=== PATIENT | male | born 1960 | race Caucasian/White ===

== ENCOUNTER → 2020-10-27 12:25 | Outpatient (CLI) | payer OTHER, MEDICAID, SELFPAY ==
--- NOTE | 2020-10-27 12:27 | DI.MRI.S_ITS ---
PROCEDURE: MR THORACIC SPINE WO CON INDICATIONS: Evaluate progressive acture pain TECHNIQUE: Noncontrast sagittal T1 spine echo and T2 fast spin echo, sagittal STIR, axial T1 and T2 fast spin echo through the thoracic spine. COMPARISON: None. FINDINGS: Image quality: Excellent. Alignment and Curvature: Normal thoracic vertebral body height and alignment. There is no compression fracture identified Bone Marrow: Normal thoracic bone marrow signal intensity. Incidentally noted 8 mm hemangioma in the T4 vertebral body, of no clinical significance. No suspicious focal marrow signal abnormality or bone marrow edema. Spinal Cord: Normal morphology and signal intensity of the thoracic cord. There is no syrinx. Normal position and appearance of the conus. Regional Soft Tissues: No prevertebral or paraspinous soft tissue mass. The included unenhanced retroperitoneal visceral structures demonstrate no acute finding. Miscellaneous: No spinal canal or neural foraminal stenosis at any level in the thoracic spine. IMPRESSION: Essentially unremarkable thoracic spine MRI. No significant degenerative changes, spinal canal stenosis, or neural foraminal stenosis. Dictated by: Michael Prasad M.D. on 10/29/2020 at 8:27 Approved by: Michael Prasad M.D. on 10/29/2020 at 8:30
== END ==
PROVIDERS: PCP Student in an Organized Health Care Education/Training Program; Referring Provider Student in an Organized Health Care Education/Training Program; Visit Provider Student in an Organized Health Care Education/Training Program
DX: M54.6 Pain in thoracic spine (principal)
CPT/HCPCS: 72146

== ENCOUNTER 2020-11-12 13:32 | Outpatient (RCR) | payer OTHER, MEDICAID, SELFPAY ==
--- NOTE | 2020-11-12 14:12 | PT-OP ANOTE ---
Eval placed onto PT's schedule for 1344. Order from Dr. Diaz has ankle, thoracic back and shoulder pain on it. Per front office and patient, pt is having neck surgery in three days. He has [facility], which is 1 eval and 24 units per year. Upon arrival, pt reports old left ankle injury and left first phalange and metatarsal pain with visible joint changes there upon PT observation. Pt reports left shoulder pain that is radicular from his neck. Given PT limitations per insurance, PT and pt decide to defer evaluation until after his neck surgery. PT provides pt business card and writes out notes for pt to give spinal surgeon re: would like to start PT for his foot, balance, thorax and left shoulder a.s.a.p. after surgery and that PT will not provide any cervical or lifting exercises for patient. Can perform PT on these areas per Dr. Diaz's order but will need clearance from surgeon before starting PT. Pt is agreeable to plan. He does state that his mother is having health concerns in [place] and that he might have to travel there to help her post-op. He would like to set-up initial eval with PT once he figures out what will happen with her.
--- NOTE | 2020-11-26 09:04 | PT-OP ANOTE ---
Pt calls and states that before cervical surgery, he was cleared to do PT if he did not lift more than 15 lbs or twist or strain his neck. He has not had a follow-up with his surgeon yet. He had days of vomiting after taking opioids and is now managing with Tylenol and edibles. He has called his surgeon's office about his medication concerns and has not heard back. He has a follow-up on 12/06/20. PT ed pt that will need a note of clearance from surgeon before initiating OPPT.
== END 2020-12-14 08:38 | disposition home or self-care (01) ==
LOC: PHYS 13:32
PROVIDERS: PCP Student in an Organized Health Care Education/Training Program; Referring Provider Student in an Organized Health Care Education/Training Program; Visit Provider Student in an Organized Health Care Education/Training Program
DX: M25.579 Pain in unspecified ankle and joints of unspecified foot (principal); M54.6 Pain in thoracic spine; M25.512 Pain in left shoulder

== ENCOUNTER → 2021-01-02 07:01 | Outpatient (CLI) | payer OTHER, MEDICAID, SELFPAY | PROVIDERS: PCP Student in an Organized Health Care Education/Training Program; Referring Provider Student in an Organized Health Care Education/Training Program; Visit Provider Student in an Organized Health Care Education/Training Program | DX: R97.20 Elevated prostate specific antigen [PSA] (principal) | CPT/HCPCS: 36415; 84153 ==

== ENCOUNTER 2021-03-05 09:45 | Outpatient (RCR) | payer OTHER, MEDICAID, SELFPAY ==
--- NOTE | 2021-02-19 15:46 | PT.OIE ---
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) Past Medical History (Last Updated 09/16/20 @ 18:37 by Vandana Brewer) Fractures History of surgical fusion joint (~2004) Skin cancer (~2003) Past Surgical History (Last Updated 09/16/20 @ 18:37 by Vandana Brewer) Anesthesia History of surgical fusion joint (~2004) Visit Care Team Role Provider Type Ulices Diaz MD Family Provider Physician Primary Care Provider Specialty: Internal Medicine Address: [address] [place] [address], [address], [address] Email: [email or web address] Ana Escoto MD Attending Provider Non-Staff Referring Provider Specialty: Neurosurgery Address: [address] [place] [address], [address], [place], [address] Email: Physical Therapy Initial Evaluation PT-OP-A Visit Information Start: 02/19/21 10:30 Freq: Status: Active Protocol: Document 02/19/21 12:20 MB (Rec: 02/19/21 12:37 MB [id number]) Out-Patient Physical Therapy Visit Information Visit Information Visit Type Initial Evaluation Visit Note [facility], Medicaid Eval only and then 8 visits a year Visit Start Time 12:20 Visit Stop Time 12:55 Total Visit Minutes 35 Visit Number 05/26 Evaluation Information Evaluation Date 02/19/21 PT-OP-B Current Condition Start: 02/19/21 10:30 Freq: Status: Active Protocol: Document 02/19/21 12:20 MB (Rec: 02/19/21 12:37 MB [id number]) Current Condition History of Current Condition Onset Date 11/15/20 Current Complaints Left traps pain up to 8/10 and left ankle pain up to 6/10 History of Current Condition Pt underwent C3-5 fusion . He has a history of C5-7 fusion in 2004. He broke his left heel in 3 places in 1979 and he broke some left toes 5 years ago and his left foot is still bothering him and he has an arthritic left great toe. He reports a lot of left calf weakness as a result of left foot issues. He is leaving for [facility] for 03/14/21. He might be gone for the rest of the year. PT course may be short. He is using Life Waves that is helping with pain. They are patches. He is using Alleve. Pt reports that he is supposed to use his own judgement about activity, not lift heavy weights or do a lot of work overhead. He was told that it would take up to a year for his neck to fuse. Pt reports no numbness or tingling in his UEs. He can sleep up to 5-6 hours on his right side. He does get nauseated if he sleeps on his left side. He only has a little issue with high BP. He has right eye ball headaches that occurs with bright light. He also sneezes with this as well. Prior Treatments and Tests Two cervical fusion Treatment Goals Patient/Caregiver Goals To improve range of motion and to loosen the the muscles around his neck and upper shoulders PT-OP-C Subjective Start: 02/19/21 10:30 Freq: Status: Active Protocol: Document 02/19/21 12:20 MB (Rec: 02/19/21 12:37 MB [id number]) OP-PT Subjective Patient Comments Patient Comments See history of current condition PT-OP-J Posture/Palpation/Skin Start: 02/19/21 10:30 Freq: Status: Active Protocol: Document 02/19/21 12:20 MB (Rec: 02/19/21 15:46 MB [id number]) Posture Evaluation Comments Posture Comments Standing with shoes off: forward head, rounded shoulders, 3.5 inch scar posterior cervical spine along spinous processes occiput to C5 area, right iliac crest higher than the left, convexity right thoracic spine , right shoulder mildly higher than the left. PT-OP-K Range of Motion Start: 02/19/21 10:30 Freq: Status: Active Protocol: Document 02/19/21 12:20 MB (Rec: 02/19/21 15:46 MB [id number]) Cervical Spine Range of Motion Cervical Spine Active Testing Position Standing Flexion 30 Extension 15 Rotation Left 50 Rotation Right 49 Lateral Flexion Left 9 Lateral Flexion Right 6 Shoulder Goniometric Range of Motion Shoulder Left Shoulder ROM WFL Yes Testing Position Standing Flexion 168 Right Shoulder ROM WFL Yes Testing Position Standing Flexion 160 PT-OP-M Strength Start: 02/19/21 10:30 Freq: Status: Active Protocol: Document 02/19/21 12:20 MB (Rec: 02/19/21 15:46 MB [id number]) Shoulder Strength Shoulder Manual Muscle Testing Left Flexion 5 Normal Abduction (C5) 5 Normal External Rotation 5 Normal Internal Rotation 4 Good Right Flexion 5 Normal Abduction (C5) 5 Normal External Rotation 5 Normal Internal Rotation 5 Normal Elbow/Forearm Strength Elbow and Forearm Manual Muscle Testing Left Flexion (C6) 5 Normal Extension (C7) 5 Normal Pronation 5 Normal Supination 5 Normal Right Flexion (C6) 5 Normal Extension (C7) 5 Normal Pronation 5 Normal Supination 5 Normal PT-OP-T Assessment and Plan Start: 02/19/21 10:30 Freq: Status: Active Protocol: Document 02/19/21 12:20 MB (Rec: 02/19/21 14:02 MB [id number]) Physical Therapy Assessment Rehab Potential Rehabilitation Potential Good Evaluation Complexity Number of Personal Factors/Comorbidities 1-2 Number of Body Systems Impaired 1-2 Clinical Presentation at Evaluation Stable Impairments Impairments Edema,Integument,Pain,Posture, ROM,Soft Tissue Mobility, Strength Other Impairments Personal factors include patient is leaving for [facility] for the rest of the year on 03/14/21 and so PT course will be condensed and shorter. Body systems affected include musculoskeletal and neuromuscular. Goals 2 Manager Reporting Goal (LTG) Pt will perform progressive HEP with I including flexibility, strengthening, postural and balance exercises to improve pain, range and function by 03/13/21. LTG Duration 4 weeks 1 Impairment NDI score reflects 34% impairment Custodial Goal (LTG) Pt will present with an improved NDI score to reflect no more than 20% impairment to improve quality of life by . LTG Duration 4 weeks Assessment Summary Assessment Pt is a 61 y/o male presenting post-op cervical fusion. He has a history of another cervical fusion and left heel and toe injuries that affect balance, mobility and pain. He presents with limited cervical ROM and decreased left shoulder strength. He states that his left shoulder was affected by his cervical changes pre-op. PT course will be short as pt is leaving the country 03/14/21. He will benefit from PT for manual work, ther-ex, self-care training, balance, strengthening and flexibility. Physical Therapy Plan Frequency and Duration Frequency of Treatment 2x/Week Duration of Treatment 4 weeks Plan of Care Start Date 02/19/21 Plan of Care End Date 03/13/21 Therapeutic Interventions Therapeutic Interventions Aquatic Therapy,Balance Training,Canalithic Repositioning,Home Exercise Program,Joint Mobilizations, Manual Therapy,Neuromuscular Re-education,Patient/Caregiver Education,Self-Care/Home Management,Soft Tissue Mobilization,Taping, Therapeutic Activities, Therapeutic Exercises Modalities Cold Pack/Ice Massage,Electric Stimulation,Hot Packs, Ultrasound Next Visit Focus/Plan Next Note Type Treatment Note Next Visit Plan Initiate racquet ball and back nobber self-massage, thoracic rotation with coordinated breathing, pt would eventually like pool program, consider tandem balance, calf stretches and racquet ball massage for calf as well as foot issue can cause balance impairment and increase fall risk
--- NOTE | 2021-02-19 15:46 | PT.OPPOC ---
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) Visit Care Team Role Provider Type Ulices Diaz MD Family Provider Physician Primary Care Provider Specialty: Internal Medicine Address: [address] [place] [address], [address], [address] Email: [email or web address] Ana Escoto MD Attending Provider Non-Staff Referring Provider Specialty: Neurosurgery Address: [address] [place] [address], [address], [place], [address] Email: Plan Of Care PT-OP-T Assessment and Plan Start: 02/19/21 10:30 Freq: Status: Active Protocol: Document 02/19/21 12:20 MB (Rec: 02/19/21 14:02 MB [id number]) Physical Therapy Assessment Rehab Potential Rehabilitation Potential Good Evaluation Complexity Number of Personal Factors/Comorbidities 1-2 Number of Body Systems Impaired 1-2 Clinical Presentation at Evaluation Stable Impairments Impairments Edema,Integument,Pain,Posture, ROM,Soft Tissue Mobility, Strength Other Impairments Personal factors include patient is leaving for [facility] for the rest of the year on 03/14/21 and so PT course will be condensed and shorter. Body systems affected include musculoskeletal and neuromuscular. 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 LTG Duration 4 weeks 1 Impairment NDI score reflects 34% impairment Prison Goal (LTG) Pt will present with an improved NDI score to reflect no more than 20% impairment to improve quality of life by . LTG Duration 4 weeks Assessment Summary Assessment Pt is a 61 y/o male presenting post-op cervical fusion. He has a history of another cervical fusion and left heel and toe injuries that affect balance, mobility and pain. He presents with limited cervical ROM and decreased left shoulder strength. He states that his left shoulder was affected by his cervical changes pre-op. PT course will be short as pt is leaving the country 03/14/21. He will benefit from PT for manual work, ther-ex, self-care training, balance, strengthening and flexibility. Physical Therapy Plan Frequency and Duration Frequency of Treatment 2x/Week Duration of Treatment 4 weeks Plan of Care Start Date 02/19/21 Plan of Care End Date 03/13/21 Therapeutic Interventions Therapeutic Interventions Aquatic Therapy,Balance Training,Canalithic Repositioning,Home Exercise Program,Joint Mobilizations, Manual Therapy,Neuromuscular Re-education,Patient/Caregiver Education,Self-Care/Home Management,Soft Tissue Mobilization,Taping, Therapeutic Activities, Therapeutic Exercises Modalities Cold Pack/Ice Massage,Electric Stimulation,Hot Packs, Ultrasound Next Visit Focus/Plan Next Note Type Treatment Note Next Visit Plan Initiate racquet ball and back nobber self-massage, thoracic rotation with coordinated breathing, pt would eventually like pool program, consider tandem balance, calf stretches and racquet ball massage for calf as well as foot issue can cause balance impairment and increase fall risk Plan of Care Dates Plan of Care Start Date 02/19/21 Plan of Care End Date 03/13/21 Electronically Signed by: Jackie Mar PT 02/19/21 4615 Please Sign and Return: I have reviewed this Plan of Care and certify that the skilled therapy services above are required to meet the patient?s needs. Physician Signature Date Printed Name and Credentials Clinical Instructor Signature Printed Name and Credentials
--- NOTE | 2021-02-20 10:31 | PT.OTN ---
Current Diagnoses Arthrodesis status (02/20/21) Physical Therapy Treatment Note PT-OP-A Visit Information Start: 02/19/21 10:30 Freq: Status: Active Protocol: Document 02/20/21 09:47 MB (Rec: 02/20/21 10:26 MB [id number]) Out-Patient Physical Therapy Visit Information Visit Information Visit Type Treatment Note Visit Note [facility], Medicaid Eval only and then 8 visits a year Visit Start Time 09:47 Visit Stop Time 10:27 Total Visit Minutes 40 Visit Number 06/26 Evaluation Information Evaluation Date 02/19/21 PT-OP-B Current Condition Start: 02/19/21 10:30 Freq: Status: Active Protocol: Document 02/19/21 12:20 MB (Rec: 02/19/21 12:37 MB [id number]) Current Condition History of Current Condition Onset Date 11/15/20 Current Complaints Left traps pain up to 8/10 and left ankle pain up to 6/10 History of Current Condition Pt underwent C3-5 fusion . He has a history of C5-7 fusion in 2004. He broke his left heel in 3 places in 1979 and he broke some left toes 5 years ago and his left foot is still bothering him and he has an arthritic left great toe. He reports a lot of left calf weakness as a result of left foot issues. He is leaving for [facility] for 03/14/21. He might be gone for the rest of the year. PT course may be short. He is using Life [employer]x [place] that is helping with pain. They are patches. He is using Alleve. Pt reports that he is supposed to use his own judgement about activity, not lift heavy weights or do a lot of work overhead. He was told that it would take up to a year for his neck to fuse. Pt reports no numbness or tingling in his UEs. He can sleep up to 5-6 hours on his right side. He does get nauseated if he sleeps on his left side. He only has a little issue with high BP. He has right eye ball headaches that occurs with bright light. He also sneezes with this as well. Prior Treatments and Tests Two cervical fusion Treatment Goals Patient/Caregiver Goals To improve range of motion and to loosen the the muscles around his neck and upper shoulders PT-OP-C Subjective Start: 10/05/21 10:30 Freq: Status: Active Protocol: Document 02/20/21 09:47 MB (Rec: 02/20/21 10:26 MB [id number]) OP-PT Subjective Patient Comments Patient Comments Pt tried towel roll under pillow and that was helpful. The pillows between his arms was not. PT-OP-J Posture/Palpation/Skin Start: 02/19/21 10:30 Freq: Status: Active Protocol: Document 02/19/21 12:20 MB (Rec: 02/19/21 15:46 MB [id number]) Posture Evaluation Comments Posture Comments Standing with shoes off: forward head, rounded shoulders, 3.5 inch scar posterior cervical spine along spinous processes occiput to C5 area, right iliac crest higher than the left, convexity right thoracic spine , right shoulder mildly higher than the left. PT-OP-K Range of Motion Start: 02/19/21 10:30 Freq: Status: Active Protocol: Document 02/19/21 12:20 MB (Rec: 02/19/21 15:46 MB [id number]) Cervical Spine Range of Motion Cervical Spine Active Testing Position Standing Flexion 30 Extension 15 Rotation Left 50 Rotation Right 49 Lateral Flexion Left 9 Lateral Flexion Right 6 Shoulder Goniometric Range of Motion Shoulder Left Shoulder ROM WFL Yes Testing Position Standing Flexion 168 Right Shoulder ROM WFL Yes Testing Position Standing Flexion 160 PT-OP-M Strength Start: 02/19/21 10:30 Freq: Status: Active Protocol: Document 02/19/21 12:20 MB (Rec: 02/19/21 15:46 MB [id number]) Shoulder Strength Shoulder Manual Muscle Testing Left Flexion 5 Normal Abduction (C5) 5 Normal External Rotation 5 Normal Internal Rotation 4 Good Right Flexion 5 Normal Abduction (C5) 5 Normal External Rotation 5 Normal Internal Rotation 5 Normal Elbow/Forearm Strength Elbow and Forearm Manual Muscle Testing Left Flexion (C6) 5 Normal Extension (C7) 5 Normal Pronation 5 Normal Supination 5 Normal Right Flexion (C6) 5 Normal Extension (C7) 5 Normal Pronation 5 Normal Supination 5 Normal PT-OP-Q Treatments Start: 02/19/21 10:30 Freq: Status: Active Protocol: Document 02/20/21 09:47 MB (Rec: 02/20/21 10:26 MB [id number]) Therapeutic Exercises Supine Exercises Pool noodle exercises Equipment Used Red pool noodle Reps/Minutes 10 reps active exercises Comments Shoulder flexion, Ts, pect stretch, half x, core engaged Sitting Exercises Thoracic rotation in sitting Comments Bilateral with breathing through ribs end-range Standing Exercises Racquet ball massage and MWM Standing Exercise Name Intrascapular muscle STM, infraspinatus MWM, upper traps MWM Side bilateral Comments Left more than right, different positions Back head tennis professional vs theracane Comments MWM left levator and upper traps, prefers head tennis professional Other Exercises Downward dog Comments Careful d/t neck, some gentle stretch PT-OP-T Assessment and Plan Start: 02/19/21 10:30 Freq: Status: Active Protocol: Document 02/20/21 09:47 MB (Rec: 02/20/21 10:26 MB [id number]) Physical Therapy Assessment Rehab Potential Rehabilitation Potential Good Evaluation Complexity Number of Personal Factors/Comorbidities 1-2 Number of Body Systems Impaired 1-2 Clinical Presentation at Evaluation Stable Impairments Impairments Edema,Integument,Pain,Posture, ROM,Soft Tissue Mobility, Strength Other Impairments Personal factors include patient is leaving for [facility] for the rest of the year on 03/14/21 and so PT course will be condensed and shorter. Body systems affected include musculoskeletal and neuromuscular. Goals 2 Detention Goal (LTG) Pt will perform progressive HEP with I including flexibility, strengthening, postural and balance exercises to improve pain, range and function by 03/13/21. LTG Duration 4 weeks 1 Impairment NDI score reflects 34% impairment Scale Expert Goal (LTG) Pt will present with an improved NDI score to reflect no more than 20% impairment to improve quality of life by . LTG Duration 4 weeks Assessment Summary Assessment Initiated exercises today for HEP--postural, flexibility, self-massage. Con't self-care and HEP progression below. Physical Therapy Plan Frequency and Duration Frequency of Treatment 2x/Week Duration of Treatment 4 weeks Plan of Care Start Date 02/19/21 Plan of Care End Date 03/13/21 Therapeutic Interventions Therapeutic Interventions Aquatic Therapy,Balance Training,Canalithic Repositioning,Home Exercise Program,Joint Mobilizations, Manual Therapy,Neuromuscular Re-education,Patient/Caregiver Education,Self-Care/Home Management,Soft Tissue Mobilization,Taping, Therapeutic Activities, Therapeutic Exercises Modalities Cold Pack/Ice Massage,Electric Stimulation,Hot Packs, Ultrasound Next Visit Focus/Plan Next Note Type Treatment Note Next Visit Plan Progress strengthening over the noodle with band, pool program, consider tandem balance, calf stretches and racquet ball massage for calf as well as foot issue can cause balance impairment and increase fall risk
--- NOTE | 2021-02-26 10:28 | PT.OTN ---
Current Diagnoses Arthrodesis status (02/26/21) Physical Therapy Treatment Note PT-OP-A Visit Information Start: 02/19/21 10:30 Freq: Status: Active Protocol: Document 02/26/21 09:46 MB (Rec: 02/26/21 10:28 MB [id number]) Out-Patient Physical Therapy Visit Information Visit Information Visit Type Treatment Note Visit Note [facility], Medicaid Eval only and then 8 visits a year Visit Start Time 09:46 Visit Stop Time 10:25 Total Visit Minutes 39 Visit Number 3/ Evaluation Information Evaluation Date 02/19/21 PT-OP-B Current Condition Start: 02/19/21 10:30 Freq: Status: Active Protocol: Document 02/19/21 12:20 MB (Rec: 02/19/21 12:37 MB [id number]) Current Condition History of Current Condition Onset Date 11/15/20 Current Complaints Left traps pain up to 8/10 and left ankle pain up to 6/10 History of Current Condition Pt underwent C3-5 fusion . He has a history of C5-7 fusion in 2004. He broke his left heel in 3 places in 1979 and he broke some left toes 5 years ago and his left foot is still bothering him and he has an arthritic left great toe. He reports a lot of left calf weakness as a result of left foot issues. He is leaving for [facility] for 03/14/21. He might be gone for the rest of the year. PT course may be short. He is using Life [employer]Mark[employer] that is helping with pain. They are patches. He is using Alleve. Pt reports that he is supposed to use his own judgement about activity, not lift heavy weights or do a lot of work overhead. He was told that it would take up to a year for his neck to fuse. Pt reports no numbness or tingling in his UEs. He can sleep up to 5-6 hours on his right side. He does get nauseated if he sleeps on his left side. He only has a little issue with high BP. He has right eye ball headaches that occurs with bright light. He also sneezes with this as well. Prior Treatments and Tests Two cervical fusion Treatment Goals Patient/Caregiver Goals To improve range of motion and to loosen the the muscles around his neck and upper shoulders PT-OP-C Subjective Start: 10/05/21 10:30 Freq: Status: Active Protocol: Document 02/26/21 09:46 MB (Rec: 02/26/21 10:28 MB [id number]) OP-PT Subjective Patient Comments Patient Comments Pt is not using his ice wave patches for pain. Since he started PT, he has only taken 1 Alleve. The towel roll support is helpful in his pillow. PT-OP-J Posture/Palpation/Skin Start: 02/19/21 10:30 Freq: Status: Active Protocol: Document 02/19/21 12:20 MB (Rec: 02/19/21 15:46 MB [id number]) Posture Evaluation Comments Posture Comments Standing with shoes off: forward head, rounded shoulders, 3.5 inch scar posterior cervical spine along spinous processes occiput to C5 area, right iliac crest higher than the left, convexity right thoracic spine , right shoulder mildly higher than the left. PT-OP-K Range of Motion Start: 02/19/21 10:30 Freq: Status: Active Protocol: Document 02/19/21 12:20 MB (Rec: 02/19/21 15:46 MB [id number]) Cervical Spine Range of Motion Cervical Spine Active Testing Position Standing Flexion 30 Extension 15 Rotation Left 50 Rotation Right 49 Lateral Flexion Left 9 Lateral Flexion Right 6 Shoulder Goniometric Range of Motion Shoulder Left Shoulder ROM WFL Yes Testing Position Standing Flexion 168 Right Shoulder ROM WFL Yes Testing Position Standing Flexion 160 PT-OP-M Strength Start: 02/19/21 10:30 Freq: Status: Active Protocol: Document 02/19/21 12:20 MB (Rec: 02/19/21 15:46 MB [id number]) Shoulder Strength Shoulder Manual Muscle Testing Left Flexion 5 Normal Abduction (C5) 5 Normal External Rotation 5 Normal Internal Rotation 4 Good Right Flexion 5 Normal Abduction (C5) 5 Normal External Rotation 5 Normal Internal Rotation 5 Normal Elbow/Forearm Strength Elbow and Forearm Manual Muscle Testing Left Flexion (C6) 5 Normal Extension (C7) 5 Normal Pronation 5 Normal Supination 5 Normal Right Flexion (C6) 5 Normal Extension (C7) 5 Normal Pronation 5 Normal Supination 5 Normal PT-OP-Q Treatments Start: 02/19/21 10:30 Freq: Status: Active Protocol: Document 02/26/21 09:46 MB (Rec: 02/26/21 10:28 MB [id number]) Therapeutic Exercises Supine Exercises Chicken stretch over pool noodle Side bilateral Equipment Used Purple pool noodle Comments Hands behind head and shoulder ER, scap retraction MWM B SCM Comments Pt performing TrP pressure and then rotating head Calf MWM with ball Comments Ball under PFs and AP, leg out straight Pool noodle exercises Supine Exercise Name PNF with level 2 band Equipment Used Purple pool noodle, level 1 & 2 band Comments Pect stretch. Band: ER, Ts with band scap retraction; shoulder, elbow flexi Sitting Exercises Plantar fascia STM Comments Ball under plantar fascia and pt performing massage over it, ball on floor Standing Exercises Gastroc and soleus stretches Side bilateral Comments 20-30 sec PT-OP-T Assessment and Plan Start: 02/19/21 10:30 Freq: Status: Active Protocol: Document 02/26/21 09:46 MB (Rec: 02/26/21 10:28 MB [id number]) Physical Therapy Assessment Rehab Potential Rehabilitation Potential Good Evaluation Complexity Number of Personal Factors/Comorbidities 1-2 Number of Body Systems Impaired 1-2 Clinical Presentation at Evaluation Stable Impairments Impairments Edema,Integument,Pain,Posture, ROM,Soft Tissue Mobility, Strength Other Impairments Personal factors include patient is leaving for [facility] for the rest of the year on 03/14/21 and so PT course will be condensed and shorter. Body systems affected include musculoskeletal and neuromuscular. Goals 2 Crossing Supervisor Goal (LTG) Pt will perform progressive HEP with I including flexibility, strengthening, postural and balance exercises to improve pain, range and function by 03/13/21. LTG Duration 4 weeks 1 Impairment NDI score reflects 34% impairment Crossing Supervisor Goal (LTG) Pt will present with an improved NDI score to reflect no more than 20% impairment to improve quality of life by . LTG Duration 4 weeks Assessment Summary Assessment Progressed strengthening on pool noodle today, self- massage with racquet ball. In future treatments, create pool and balance programs. MWM left greater than right middle scalene and upper traps in sitting with PT holding TrP and pt performing active cervical rotation and range and pain and improve and PT teaches pt how to perform himself. Pt is progressing quickly. Physical Therapy Plan Frequency and Duration Frequency of Treatment 2x/Week Duration of Treatment 4 weeks Plan of Care Start Date 02/19/21 Plan of Care End Date 03/13/21 Therapeutic Interventions Therapeutic Interventions Aquatic Therapy,Balance Training,Canalithic Repositioning,Home Exercise Program,Joint Mobilizations, Manual Therapy,Neuromuscular Re-education,Patient/Caregiver Education,Self-Care/Home Management,Soft Tissue Mobilization,Taping, Therapeutic Activities, Therapeutic Exercises Modalities Cold Pack/Ice Massage,Electric Stimulation,Hot Packs, Ultrasound Next Visit Focus/Plan Next Note Type Treatment Note Next Visit Plan Pool program, consider tandem and other balance exercises-- check FGA
--- NOTE | 2021-02-28 10:19 | PT.OTN ---
Current Diagnoses Arthrodesis status (02/28/21) Physical Therapy Treatment Note PT-OP-A Visit Information Start: 02/19/21 10:30 Freq: Status: Active Protocol: Document 02/28/21 09:46 MB (Rec: 02/28/21 10:19 MB [id number]) Out-Patient Physical Therapy Visit Information Visit Information Visit Type Treatment Note Visit Note [facility], Medicaid Eval only and then 8 visits a year Visit Start Time 09:46 Visit Stop Time 10:18 Total Visit Minutes 32 Visit Number 4/ Evaluation Information Evaluation Date 02/19/21 PT-OP-B Current Condition Start: 02/19/21 10:30 Freq: Status: Active Protocol: Document 02/19/21 12:20 MB (Rec: 02/19/21 12:37 MB [id number]) Current Condition History of Current Condition Onset Date 11/15/20 Current Complaints Left traps pain up to 8/10 and left ankle pain up to 6/10 History of Current Condition Pt underwent C3-5 fusion . He has a history of C5-7 fusion in 2004. He broke his left heel in 3 places in 1979 and he broke some left toes 5 years ago and his left foot is still bothering him and he has an arthritic left great toe. He reports a lot of left calf weakness as a result of left foot issues. He is leaving for [facility] for 03/14/21. He might be gone for the rest of the year. PT course may be short. He is using Life GetMy[employer] that is helping with pain. They are patches. He is using Alleve. Pt reports that he is supposed to use his own judgement about activity, not lift heavy weights or do a lot of work overhead. He was told that it would take up to a year for his neck to fuse. Pt reports no numbness or tingling in his UEs. He can sleep up to 5-6 hours on his right side. He does get nauseated if he sleeps on his left side. He only has a little issue with high BP. He has right eye ball headaches that occurs with bright light. He also sneezes with this as well. Prior Treatments and Tests Two cervical fusion Treatment Goals Patient/Caregiver Goals To improve range of motion and to loosen the the muscles around his neck and upper shoulders PT-OP-C Subjective Start: 10/05/21 10:30 Freq: Status: Active Protocol: Document 02/28/21 09:46 MB (Rec: 02/28/21 10:19 MB [id number]) OP-PT Subjective Patient Comments Patient Comments Pt was feeling a little cranky and stiff in his neck and then put on the wave patches and the pain went immediately away. PT-OP-J Posture/Palpation/Skin Start: 02/19/21 10:30 Freq: Status: Active Protocol: Document 02/19/21 12:20 MB (Rec: 02/19/21 15:46 MB [id number]) Posture Evaluation Comments Posture Comments Standing with shoes off: forward head, rounded shoulders, 3.5 inch scar posterior cervical spine along spinous processes occiput to C5 area, right iliac crest higher than the left, convexity right thoracic spine , right shoulder mildly higher than the left. PT-OP-K Range of Motion Start: 02/19/21 10:30 Freq: Status: Active Protocol: Document 02/19/21 12:20 MB (Rec: 02/19/21 15:46 MB [id number]) Cervical Spine Range of Motion Cervical Spine Active Testing Position Standing Flexion 30 Extension 15 Rotation Left 50 Rotation Right 49 Lateral Flexion Left 9 Lateral Flexion Right 6 Shoulder Goniometric Range of Motion Shoulder Left Shoulder ROM WFL Yes Testing Position Standing Flexion 168 Right Shoulder ROM WFL Yes Testing Position Standing Flexion 160 PT-OP-M Strength Start: 02/19/21 10:30 Freq: Status: Active Protocol: Document 02/19/21 12:20 MB (Rec: 02/19/21 15:46 MB [id number]) Shoulder Strength Shoulder Manual Muscle Testing Left Flexion 5 Normal Abduction (C5) 5 Normal External Rotation 5 Normal Internal Rotation 4 Good Right Flexion 5 Normal Abduction (C5) 5 Normal External Rotation 5 Normal Internal Rotation 5 Normal Elbow/Forearm Strength Elbow and Forearm Manual Muscle Testing Left Flexion (C6) 5 Normal Extension (C7) 5 Normal Pronation 5 Normal Supination 5 Normal Right Flexion (C6) 5 Normal Extension (C7) 5 Normal Pronation 5 Normal Supination 5 Normal PT-OP-Q Treatments Start: 02/19/21 10:30 Freq: Status: Active Protocol: Document 02/28/21 09:46 MB (Rec: 02/28/21 10:19 MB [id number]) Therapeutic Exercises Standing Exercises Standing exercises for the pool for balance Comments Marching, hamstring, walking forward, squats, hip abd, ext, flexion Tandem balance Side bilateral Comments Pt has trouble with this initially and then responds well PT-OP-T Assessment and Plan Start: 02/19/21 10:30 Freq: Status: Active Protocol: Document 02/28/21 09:46 MB (Rec: 02/28/21 10:19 MB [id number]) Physical Therapy Assessment Rehab Potential Rehabilitation Potential Good Evaluation Complexity Number of Personal Factors/Comorbidities 1-2 Number of Body Systems Impaired 1-2 Clinical Presentation at Evaluation Stable Impairments Impairments Edema,Integument,Pain,Posture, ROM,Soft Tissue Mobility, Strength Other Impairments Personal factors include patient is leaving for [facility] for the rest of the year on 03/14/21 and so PT course will be condensed and shorter. Body systems affected include musculoskeletal and neuromuscular. Goals 2 [employer] Goal (LTG) Pt will perform progressive HEP with I including flexibility, strengthening, postural and balance exercises to improve pain, range and function by 03/13/21. LTG Duration 4 weeks 1 Impairment NDI score reflects 34% impairment [employer] Goal (LTG) Pt will present with an improved NDI score to reflect no more than 20% impairment to improve quality of life by . LTG Duration 4 weeks Assessment Summary Assessment Progressed pool and balance exercises today and pt responds well. Physical Therapy Plan Frequency and Duration Frequency of Treatment 2x/Week Duration of Treatment 4 weeks Plan of Care Start Date 02/19/21 Plan of Care End Date 03/13/21 Therapeutic Interventions Therapeutic Interventions Aquatic Therapy,Balance Training,Canalithic Repositioning,Home Exercise Program,Joint Mobilizations, Manual Therapy,Neuromuscular Re-education,Patient/Caregiver Education,Self-Care/Home Management,Soft Tissue Mobilization,Taping, Therapeutic Activities, Therapeutic Exercises Modalities Cold Pack/Ice Massage,Electric Stimulation,Hot Packs, Ultrasound Next Visit Focus/Plan Next Note Type Treatment Note Next Visit Plan Check FGA, progress exercises if needed
--- NOTE | 2021-03-05 10:31 | PT.OTN ---
Current Diagnoses Arthrodesis status (03/05/21) Physical Therapy Treatment Note PT-OP-A Visit Information Start: 02/19/21 10:30 Freq: Status: Active Protocol: Document 03/05/21 09:46 MB (Rec: 03/05/21 10:31 MB [id number]) Out-Patient Physical Therapy Visit Information Visit Information Visit Type Treatment Note Visit Note [facility], Medicaid Eval only and then 8 visits a year Visit Start Time 09:46 Visit Stop Time 10:26 Total Visit Minutes 40 Visit Number 09/23 Evaluation Information Evaluation Date 02/19/21 PT-OP-B Current Condition Start: 02/19/21 10:30 Freq: Status: Active Protocol: Document 02/19/21 12:20 MB (Rec: 02/19/21 12:37 MB [id number]) Current Condition History of Current Condition Onset Date 11/15/20 Current Complaints Left traps pain up to 8/10 and left ankle pain up to 6/10 History of Current Condition Pt underwent C3-5 fusion . He has a history of C5-7 fusion in 2004. He broke his left heel in 3 places in 1979 and he broke some left toes 5 years ago and his left foot is still bothering him and he has an arthritic left great toe. He reports a lot of left calf weakness as a result of left foot issues. He is leaving for [facility] for 03/14/21. He might be gone for the rest of the year. PT course may be short. He is using Life s0cket that is helping with pain. They are patches. He is using Alleve. Pt reports that he is supposed to use his own judgement about activity, not lift heavy weights or do a lot of work overhead. He was told that it would take up to a year for his neck to fuse. Pt reports no numbness or tingling in his UEs. He can sleep up to 5-6 hours on his right side. He does get nauseated if he sleeps on his left side. He only has a little issue with high BP. He has right eye ball headaches that occurs with bright light. He also sneezes with this as well. Prior Treatments and Tests Two cervical fusion Treatment Goals Patient/Caregiver Goals To improve range of motion and to loosen the the muscles around his neck and upper shoulders PT-OP-C Subjective Start: 10/05/21 10:30 Freq: Status: Active Protocol: Document 03/05/21 09:46 MB (Rec: 03/05/21 10:31 MB [id number]) OP-PT Subjective Patient Comments Patient Comments Pt states that his neck is a little sore today. 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 PT-OP-J Posture/Palpation/Skin Start: 02/19/21 10:30 Freq: Status: Active Protocol: Document 02/19/21 12:20 MB (Rec: 02/19/21 15:46 MB [id number]) Posture Evaluation Comments Posture Comments Standing with shoes off: forward head, rounded shoulders, 3.5 inch scar posterior cervical spine along spinous processes occiput to C5 area, right iliac crest higher than the left, convexity right thoracic spine , right shoulder mildly higher than the left. PT-OP-K Range of Motion Start: 02/19/21 10:30 Freq: Status: Active Protocol: Document 02/19/21 12:20 MB (Rec: 02/19/21 15:46 MB [id number]) Cervical Spine Range of Motion Cervical Spine Active Testing Position Standing Flexion 30 Extension 15 Rotation Left 50 Rotation Right 49 Lateral Flexion Left 9 Lateral Flexion Right 6 Shoulder Goniometric Range of Motion Shoulder Left Shoulder ROM WFL Yes Testing Position Standing Flexion 168 Right Shoulder ROM WFL Yes Testing Position Standing Flexion 160 PT-OP-M Strength Start: 02/19/21 10:30 Freq: Status: Active Protocol: Document 02/19/21 12:20 MB (Rec: 02/19/21 15:46 MB [id number]) Shoulder Strength Shoulder Manual Muscle Testing Left Flexion 5 Normal Abduction (C5) 5 Normal External Rotation 5 Normal Internal Rotation 4 Good Right Flexion 5 Normal Abduction (C5) 5 Normal External Rotation 5 Normal Internal Rotation 5 Normal Elbow/Forearm Strength Elbow and Forearm Manual Muscle Testing Left Flexion (C6) 5 Normal Extension (C7) 5 Normal Pronation 5 Normal Supination 5 Normal Right Flexion (C6) 5 Normal Extension (C7) 5 Normal Pronation 5 Normal Supination 5 Normal PT-OP-Q Treatments Start: 02/19/21 10:30 Freq: Status: Active Protocol: Document 03/05/21 09:46 MB (Rec: 03/05/21 10:31 MB [id number]) Therapeutic Exercises Supine Exercises Core progression Side bilateral Comments Abd drawing in, knee rocking, mini march, knee fall out Standing Exercises Scapular retraction with arms straight, reverse flies Side bilateral Comments Level 2 band, 10 reps slowly Racquet ball massage and MWM Equipment Used His small ball and racquet ball Comments Infra massage, MWM infra, intrascapular STM Other Exercises Verbally reviewed all exercises Comments Reviewed all handouts Neuro Re-Education Treatment Balance Activities FGA Comments FGA score is 29/30, WNLs PT-OP-T Assessment and Plan Start: 02/19/21 10:30 Freq: Status: Active Protocol: Document 03/05/21 09:46 MB (Rec: 03/05/21 10:31 MB [id number]) Physical Therapy Assessment Rehab Potential Rehabilitation Potential Good Evaluation Complexity Number of Personal Factors/Comorbidities 1-2 Number of Body Systems Impaired 1-2 Clinical Presentation at Evaluation Stable Impairments Impairments Edema,Integument,Pain,Posture, ROM,Soft Tissue Mobility, Strength Other Impairments Personal factors include patient is leaving for [facility] for the rest of the year on 03/14/21 and so PT course will be condensed and shorter. Body systems affected include musculoskeletal and neuromuscular. Goals 2 Half-Way Goal (LTG) Pt will perform progressive HEP with I including flexibility, strengthening, postural and balance exercises to improve pain, range and function by 03/13/21. 03/05/21: Pt is performing progressive HEP LTG Duration Met 1 Impairment NDI score reflects 34% impairment Superintendent Local Goal (LTG) Pt will present with an improved NDI score to reflect no more than 20% impairment to improve quality of life by . 03/05/21: NDI score reflects 48% impairment. This questionnaire may not be the best for pt so soon post-op cervical fusion. He cannot do his past overhead work. LTG Duration Not met Assessment Summary Assessment Progressed intrascapular strengthening and added core progression today. Tested balance and pt performed well on FGA and already has balance exercise for home program. NDI questionnaire may not be accurate assessment of progression given post-op precautions. He is ready to d/ c. He leaves the country for [facility] next week. Will d/c PT. Physical Therapy Plan Therapeutic Interventions Therapeutic Interventions Aquatic Therapy,Balance Training,Canalithic Repositioning,Home Exercise Program,Joint Mobilizations, Manual Therapy,Neuromuscular Re-education,Patient/Caregiver Education,Self-Care/Home Management,Soft Tissue Mobilization,Taping, Therapeutic Activities, Therapeutic Exercises Modalities Cold Pack/Ice Massage,Electric Stimulation,Hot Packs, Ultrasound
== END 2021-06-18 09:53 ==
LOC: PHYS 09:45
PROVIDERS: Family Provider Student in an Organized Health Care Education/Training Program; PCP Student in an Organized Health Care Education/Training Program; Referring Provider Neurological Surgery; Visit Provider Neurological Surgery
DX: Z98.1 Arthrodesis status (principal)
CPT/HCPCS: 97110; 97112; 97161

== ENCOUNTER → 2021-10-29 09:24 | Outpatient (CLI) | payer OTHER, MEDICAID, SELFPAY ==
[2021-10-29 10:08] LABS: Glucose 90 mg/dL (80-110)
[2021-10-29 10:35] LABS: Prostate Specific Antigen Scrn 4.55 ng/mL (0.1-4.0)
== END ==
PROVIDERS: Family Provider Student in an Organized Health Care Education/Training Program; PCP Student in an Organized Health Care Education/Training Program; Referring Provider Student in an Organized Health Care Education/Training Program; Visit Provider Student in an Organized Health Care Education/Training Program
DX: Z12.5 Encounter for screening for malignant neoplasm of prostate (principal); R73.9 Hyperglycemia, unspecified
CPT/HCPCS: 36415; 82947; G0103

== ENCOUNTER → 2021-12-10 07:39 | Outpatient (CLI) | payer OTHER, MEDICAID, SELFPAY ==
[2021-12-10 10:58] LABS: Prostate Specific Antigen 3.54 ng/mL (0.10-4.00)
== END ==
PROVIDERS: Family Provider Student in an Organized Health Care Education/Training Program; PCP Student in an Organized Health Care Education/Training Program; Referring Provider Student in an Organized Health Care Education/Training Program; Visit Provider Student in an Organized Health Care Education/Training Program
DX: R97.20 Elevated prostate specific antigen [PSA] (principal)
CPT/HCPCS: 36415; 84153

== ENCOUNTER → 2022-01-06 12:39 | Outpatient (CLI) | payer OTHER, MEDICAID, SELFPAY ==
--- NOTE | 2022-01-06 | DI.CT.S_ITS ---
PROCEDURE: CT CERVICAL SPINE WO CON INDICATIONS: Arthrodesis status TECHNIQUE: Noncontrast 3 mm thick sections acquired from the skull base to the T4 level. Sagittal and coronal reformats were then constructed. For radiation dose reduction, the following was used: automated exposure control, adjustment of mA and/or kV according to patient size. COMPARISON: [facility], , CERVICAL SPINE 2 OR 3 VIEWS, 06/18/2016, 14:39. Outside Facility, [facility], MRI C-SPINE W/O CONTRAST, 07/24/2020, 6:59. FINDINGS: Image quality: Excellent. Bones: No fractures or dislocations. Visualized superior ribs are intact. Extensive postoperative hardware can be seen, with bilateral pedicle screws seen posteriorly at the C3 through C6 levels. Several of the screws approach the vertebral artery canals. Vertical fixation rods are seen. Disc spacers are seen at the C5-C6 and C6-C7 levels. No findings of hardware failure or hardware loosening are seen. There has been removal of portions of the posterior elements. Posteriorly projected endplate osteophytes are seen at C6-C7, with mild to moderate central canal narrowing. Soft tissues: Prevertebral soft tissues are normal in thickness. No paravertebral hematomas. No apical pneumothoraces. IMPRESSION: Extensive postoperative hardware seen posteriorly, without immanuel complication. Moderate central canal narrowing is seen at C6-C7. Dictated by: London Sullivan M.D. on 01/06/2022 at 12:12 Approved by: London Sullivan M.D. on 01/06/2022 at 12:15
== END ==
PROVIDERS: Family Provider Student in an Organized Health Care Education/Training Program; PCP Student in an Organized Health Care Education/Training Program; Referring Provider Physician Assistant; Visit Provider Physician Assistant
DX: Z98.1 Arthrodesis status (principal); M48.02 Spinal stenosis, cervical region
CPT/HCPCS: 72125

== ENCOUNTER 2022-01-08 10:30 | Outpatient (RCR) | payer OTHER, MEDICAID, SELFPAY ==
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
--- NOTE | 2021-11-13 19:01 | PT.OPPOC ---
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) Abnormal posture (11/13/21) Weakness (11/13/21) Visit Care Team Role Provider Type Ulices Diaz MD Attending Provider Physician Family Provider Primary Care Provider Referring Provider Specialty: Internal Medicine Address: [address] [place] [address], [address], [address] Email: [email or web address] Plan Of Care PT-OP-T Assessment and Plan Start: 11/11/21 17:37 Freq: Status: Active Protocol: Document 11/13/21 07:29 [facility] (Rec: 11/13/21 08:26 [facility] [id number]) Physical Therapy Assessment Rehab Potential Rehabilitation Potential Fair Evaluation Complexity Number of Personal Factors/Comorbidities 3 or More Number of Body Systems Impaired 4 or More Clinical Presentation at Evaluation Evolving Impairments Impairments Activity Tolerance,Functional Activities,Functional Mobility ,Pain,Posture,ROM,Soft Tissue Mobility,Strength Goals strength Short Term Goal (STG) Pt will be indep w/HEP STG Duration 12/30/21 Snf Goal (LTG) Pt will improve BUE strength to at least 4/5 w/good core response to show improved connection of UEs to trunk to dec instances of neck, thoracic and lumbar pain. LTG Duration 02/13/22 ROM Short Term Goal (STG) Pt will improve cervical ROM into all planes by 10 deg STG Duration 12/30/21 Snf Goal (LTG) Pt will improve to at least 50 deg rotation B to improve pt ability to turn when driving and doing funtional tasks. LTG Duration 02/13/22 activity Short Term Goal (STG) Pt will improve tolerance for housework activities from 1 hours to at least 2 hours. STG Duration 01/04/22 Day Care Home Provider Goal (LTG) Pt will imrpove tolerance to upright time from about 3 hours to 5 hours prior to needing to lay down to recover . LTG Duration 02/13/22 NDI Impairment 33/50 Short Term Goal (STG) pt will improve NDI score to at least 25/50 to show imrpoved functional ability. STG Duration 12/30/21 Day Care Home Provider Goal (LTG) pt will improve NDI score to at least 18/50 to show imrpoved functional ability. LTG Duration 02/13/22 Assessment Summary Assessment Pt presents with cervical, thoracic and lumbar pain along w/pain in mult other areas. His biggest concern currently in cervical and thoracic pain w/L shoulder discomfort that is likely related. He has poor connection of UEs to trunk and leans significantly w/even small amounts of load placed into his UEs which will put more stress on neck w/use of UEs. He has some dizziness that pt notes will come on suddently and some pressure in his ears feeling w/noted jaw discomfort. This is likely related to cervical dysfunctions. He has severely limited ROM, strength, stability and high levels of pain limiting his function. He would benefit from skilled PT for core, cervical, postural & UE stability , and improvement of ROM, and function. Physical Therapy Plan Frequency and Duration Frequency of Treatment 1-2x/week Duration of Treatment 3 months Plan of Care Start Date 11/13/21 Plan of Care End Date 02/13/22 Therapeutic Interventions Therapeutic Interventions Home Exercise Program,Joint Mobilizations,Manual Therapy, Neuromuscular Re-education, Patient/Caregiver Education, Self-Care/Home Management,Soft Tissue Mobilization,Taping, Therapeutic Activities Modalities Cold Pack/Ice Massage,Electric Stimulation,Hot Packs, Ultrasound Next Visit Focus/Plan Next Note Type Treatment Note Next Visit Plan VAT, neural tension tests UE, pool noodle/foam roll stretching, open book, cat/ camel Plan of Care Dates Plan of Care Start Date 11/13/21 Plan of Care End Date 02/13/22 Electronically Signed by: Anni Esteves, PT 11/13/21 0517 If you are in agreement with this Plan of Care, please return a signed and dated copy. I have reviewed this Plan of Care and certify that the skilled therapy services above are required to meet the patient?s needs. Physician Signature Date Printed Name and Credentials Clinical Instructor Signature Printed Name and Credentials
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
== END 2022-01-31 09:20 ==
LOC: PHYS 10:30
PROVIDERS: Family Provider Student in an Organized Health Care Education/Training Program; PCP Student in an Organized Health Care Education/Training Program; Referring Provider Student in an Organized Health Care Education/Training Program; Visit Provider Student in an Organized Health Care Education/Training Program
DX: M54.2 Cervicalgia (principal); G89.29 Other chronic pain; M99.81 Other biomechanical lesions of cervical region; R53.1 Weakness; M54.6 Pain in thoracic spine; R29.3 Abnormal posture; M25.512 Pain in left shoulder
CPT/HCPCS: 97110; 97140; 97162

== ENCOUNTER → 2022-01-21 16:27 | Outpatient (CLI) | payer OTHER, MEDICAID, SELFPAY ==
--- NOTE | 2022-01-21 16:29 | DI.MRI.S_ITS ---
PROCEDURE: MR THORACIC SPINE WO CON INDICATIONS: DDD - on going pain TECHNIQUE: Noncontrast sagittal T1 spine echo and T2 fast spin echo, sagittal STIR, and T2 fast spin echo through the thoracic spine. COMPARISON: [facility], , MR THORACIC SPINE WO CON, 10/27/2020, 12:33. FINDINGS: Image quality: Excellent. Alignment and Curvature: There is normal bony alignment. Bone Marrow: Marrow is of normal overall signal. Increased T1 and T2 signal within the T5 vertebral body most suggestive of hemangioma. No acute vertebral body compression fractures. Spinal Cord: Visualized spinal cord is normal in size and signal. Paraspinous Soft Tissues: No paravertebral masses. Miscellaneous: Multilevel scattered mild disc desiccation is present. Minimal disc bulge is present at T7-8, T8-9, T9-10, T10-11. On axial images, central canal and foramina appear widely patent at all scanned levels. IMPRESSION: Multilevel scattered mild disc bulges and desiccation. No spinal stenosis or foraminal narrowing. Dictated by: Kaitlyn Hopper M.D. on 01/22/2022 at 9:37 Approved by: Kaitlyn Hopper M.D. on 01/22/2022 at 9:50
== END ==
PROVIDERS: Family Provider Student in an Organized Health Care Education/Training Program; PCP Student in an Organized Health Care Education/Training Program; Referring Provider Physician Assistant; Visit Provider Physician Assistant
DX: M51.34 Other intervertebral disc degeneration, thoracic region (principal)
CPT/HCPCS: 72146

== ENCOUNTER → 2022-02-17 12:49 | Outpatient (CLI) | payer OTHER, MEDICAID, SELFPAY ==
--- NOTE | 2022-02-17 12:50 | DI.RAD.S_ITS ---
PROCEDURE: FL BARIUM SWALLOW W SPEECH INDICATIONS: Dysphagia; h/o multiple neck surgeries COMPARISON: TECHNIQUE: Examination was conducted in conjunction with speech pathology per standard protocol. In the lateral projection, filming was performed of the patient swallowing. AP projection filming may also be performed with patient swallowing. COMPARISON: Non. FINDINGS: Posterior fusion in cervical spine. Function: The oral preparatory phase appears normal, with proper containment. The subsequent oral propulsive phase, pharyngeal phase, and esophageal phase of swallowing also appear normal with all proffered substances. No laryngotracheal penetration or aspiration. No pathologic vallecular pooling. Morphology: No cricopharyngeal bar is identified. No cervical esophageal webs. No Zenker's diverticulum. No strictures. IMPRESSION: Normal modified barium swallow study. No laryngeal penetration or aspiration. Please see separate speech pathologist's report for detail. Dictated by: Cb Mcmahon M.D. on 02/17/2022 at 13:42 Approved by: Cb Mcmahon M.D. on 02/17/2022 at 13:44
--- NOTE | 2022-02-17 15:06 | ST.SWALLOW ---
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 He had ACDF surgery in 2004 and removal of the plate in 2007 after a previous swallow study found the hardware was impinging on esophagus. After removal, no change in symptoms was observed or reported. Pt had additional ACDF surgery in November 2020 and was referred for a modified barium swallow study due to mucous getting stuck in his throat. Pt stated he can sometimes clear his throat with careful swallows, though sometimes vigorous coughing is required to clear. Pt denies aspiration or coughing. Subjective Observations Pt arrived on time and ambulated independently. He reported having a modified barium swallow study in the past. Reviewed process and procedure for modified barium swallow study and pt expressed understanding and agreed to participate. Patient Positioning Position View Lat-A/P Imaging Lateral View Textures Administered Trials Presented Thin Liquid via Cup,[place] Liquid via Cup,Honey Liquid via Spoon,Regular Textures Oral Phase Source: MBSIMP (TM) (C) Bolus Specific Scoring Grid Lip Closure No Impairment (WNL) Tongue Control During Bolus Hold Mild Impairment Bolus Prep/Mastication No Impairment (WNL) Bolus Transport/Lingual Motion No Impairment (WNL) A/P Lingual Propulsion Delay No Oral Residue Mild Impairment Residue Clearing No Impairment (WNL) Nasal Regurgitation No Additional Oral Phase Observations The pt presented with no anterior loss of bolus. During tongue hold, pt lost trace amounts of bolus posteriorly and pooling was observed in valleculae and pyriforms. A/p propulsion and mastication of bolus were WNL. Mild residue observed following swallow, though pt cleared with a spontaneous second swallow. Pharyngeal Phase Source: MBSIMP (TM) (C) Bolus Specific Scoring Grid Delayed Initiation of Pharyngeal Swallow Yes: head of bolus in pyriforms Soft Palate Elevation No Impairment (WNL) Tongue Base Strength/Range of Motion No Impairment (WNL) Residue Along the Tongue Base Yes Clearance of Residue Along Tongue Base No Impairment (WNL) Laryngeal Elevation Mild Impairment Anterior Hyoid Movement Minimal Impairment Epiglottic Range of Motion No Impairment (WNL) Vallecular Residue Yes Clearance of Vallecular Residue No Impairment (WNL) Laryngeal Vestibular Closure Mild Impairment Pharyngeal Stripping Wave No Impairment (WNL) Pharyngeal Contraction No Impairment (WNL) Posterior Pharyngeal Wall Residue No Upper Esophageal Sphincter Opening No Impairment (WNL) Residue in the Pyriform Sinuses Yes Clearance of Residue in the Pyriform No Impairment (WNL) Sinuses Esophageal Clearance Upright Position No Impairment (WNL) Pharyngoesophageal Backflow Observed No Additional Pharyngeal Phase Observations Delayed initiation of pharyngeal swallow, with the head of the bolus in the pyriforms. Hyoid elevation and excursion was minimally impaired and epiglottic inversion was completed, though likely stiffened from repeated surgeries. Laryngeal elevation had minimal approximation of arytenoids to epiglottic petiole and laryngeal vestibular closure was mild-moderately impaired as a result. Pt exhibited a wide opening in laryngeal vestibule which resulted in bolus entering this space, though no aspiration was observed. Bolus appeared to enter laryngeal vestibule and then was ejected and proceeded to esophagus with thin and nectar thick liquids. Complete closure observed with honey thick liquid and solids. Pt reported no coughing while eating. Pharyngeal residue observed in valleculae, pyriforms, and on base of tongue, which were all cleared with a spontaneous second swallow. A/P View Textures Administered Trials Presented Thin Liquid via Cup,Barium Tablet A/P View Observations Pharyngeal Contraction No Impairment (WNL) Esophageal Function No Impairment (WNL) Esophageal Clearance Upright Position No Impairment (WNL) Additional Observations Pt exhibited trace retention of bolus in esophagus following swallow, but was WNL . Bolus moved rapidly and efficiently through esophagus to stomach. Clinical Impressions Dysphagia Type Pharyngeal dysphagia Findings The pt presents with mild pharyngeal dysphagia characterized by impaired laryngeal vestibular closure that increases risk for aspiration. Pt exhibited complete epiglottic inversion, though movement was slowed, likely due to repeated surgeries and scar tissue, and reduced laryngeal vestibular closure with minimal approximation of arytenoids to epiglottic petiole. No aspiration was observed and honey thick liquid appeared to aid in laryngeal vestibular closure. Speech therapy is not indicated at this time, but did provide pt with strategies to reduce risk for aspiration and provided education regarding pursuit of speech therapy at a later date if he starts coughing with meals. Pt expressed understanding and agreement with plan of care. Patient Appropriate for Therapy No Recommendations Diet Liquids Order Thin Diet Order Regular Medication Recommendation As Tolerated Aspiration Precautions Recommended Precautions Upright at 90 Degrees,Small Bites/Sips,Chin Tuck Treatment Plan Compensatory Strategies Recommendations Sitting Upright (90 deg),Chin Tuck,Small Bites and Sips
== END ==
PROVIDERS: Family Provider Student in an Organized Health Care Education/Training Program; PCP Student in an Organized Health Care Education/Training Program; Referring Provider Student in an Organized Health Care Education/Training Program; Visit Provider Student in an Organized Health Care Education/Training Program
DX: R13.10 Dysphagia, unspecified (principal); Z98.1 Arthrodesis status
CPT/HCPCS: 74230; 92611

== ENCOUNTER → 2022-03-11 07:28 | Outpatient (CLI) | payer OTHER, MEDICAID, SELFPAY ==
[2022-03-11 08:42] LABS: Add Manual Diff / Slide Review NO; Basophils Absolute Auto 100 /uL (0-100); Basophils Percent Auto 0.9 % (0-2); Eosinophils Absolute Auto 200 /uL (0-450); Eosinophils Percent Auto 2.7 % (2-4); Hematocrit 42.1 % (41-53); Hemoglobin 14.5 g/dL (13.5-17.5); Lymphocytes Absolute Auto 1800 /uL (1100-4500); Lymphocytes Percent Auto 26.5 % (25-40); Mean Corpuscular HGB Conc 34.4 % (30-36); Mean Corpuscular Hemoglobin 32.6 PG (26-34); Mean Corpuscular Volume 94.8 fL (80-100); Monocytes Absolute Auto 400 /uL (0-900); Neutrophils Absolute Auto 4300 /uL (1500-7000); Neutrophils Percent Auto 63.9 % (50-75); Platelet Count 221 X10^3/uL (150-400); Red Blood Cell Count 4.43 X10^6/uL (4.5-5.9); Red Cell Distribution Width 13.6 % (11.6-14.8); White Blood Cell Count 6.7 X10^3/uL (4.5-11.0)
[2022-03-11 08:52] LABS: Alanine Aminotransferase 36 IU/L (<50); Albumin 4.4 g/dL (3.5-5.0); Albumin Globulin Ratio 1.5 (1.0-2.8); Alkaline Phosphatase 58 U/L (38-126); Aspartate Aminotransferase 34 IU/L (17-59); BUN Creatinine Ratio 16.5 (6-22); Bilirubin Total 0.4 mg/dL (0.2-1.3); Blood Urea Nitrogen 14 mg/dL (9-20); Calcium 9.6 mg/dL (8.4-10.2); Carbon Dioxide 27 mmol/L (22-32); Chloride 103 mmol/L (98-107); Estimated Glomerular Filt Rate > 60 mL/min (>60); Globulin 2.9 g/dL (1.7-4.1); Glucose 108 mg/dL (80-110); HEMOLYSIS < 15 (0-50); Sodium 140 mmol/L (137-145); Total Protein 7.3 g/dL (6.3-8.2)
== END ==
PROVIDERS: Family Provider Student in an Organized Health Care Education/Training Program; PCP Student in an Organized Health Care Education/Training Program; Referring Provider Student in an Organized Health Care Education/Training Program; Visit Provider Student in an Organized Health Care Education/Training Program
DX: Z01.810 Encounter for preprocedural cardiovascular examination (principal)
CPT/HCPCS: 36415; 80053; 85025